=== PATIENT | male | born 1980 | race Caucasian/White ===

== ENCOUNTER 2017-08-02 22:11 | Emergency (ER) | payer OTHER ==
[2017-08-02 22:26] VITALS: BP 134/92
--- NOTE | 2017-08-02 23:23 | EDM.PDOC ---
ED HPI GENERAL MEDICAL PROBLEM - General Chief Complaint: Genitourinary Problem Stated Complaint: GROIN AREA PROBLEM Time Seen by Provider: 08/02/17 22:35 Source of Information: Reports: Patient History Limitations: Reports: No Limitations - History of Present Illness INITIAL COMMENTS - FREE TEXT/NARRATIVE: The patient presents with right testicular pain and swelling. This started this morning. He denies any trauma. He has no discharge, dysuria, or frequency. He is in a monogamous relationship with his for many years. He has no fever, chills, cough, chest pain, shortness of breath, abdominal pain , nausea or vomiting. He has no lesions on his penis. Onset: Gradual Duration: Hour(s): Location: Reports: Other (Right testicular pain) Quality: Reports: Sharp Severity: Moderate Improves with: Reports: None Worsens with: Reports: None Associated Symptoms: Reports: No Other Symptoms Right Pain Score (Numeric/FACES): 10 - Related Data Allergies Allergy/AdvReac Type Severity Reaction Status Date / Time No Known Allergies Allergy Verified 08/02/17 22:26 Home Meds: Home Meds . [No Known Home Meds] 08/02/17 [History] Past Medical History - Past Health History Medical/Surgical History: Denies Medical/Surgical History Other Musculoskeletal History: right wrist surgery Social & Family History - Tobacco Use Smoking Status *Q: Never Smoker ED ROS GENERAL - Review of Systems Review Of Systems: See Below Constitutional: Reports: No Symptoms HEENT: Reports: No Symptoms Respiratory: Reports: No Symptoms Cardiovascular: Reports: No Symptoms Endocrine: Reports: No Symptoms GI/Abdominal: Reports: No Symptoms : Reports: Other (Right testicular pain) Musculoskeletal: Reports: No Symptoms ED EXAM, RENAL/ - Physical Exam Exam: See Below Exam Limited By: No Limitations General Appearance: Alert, No Apparent Distress Ears: Normal External Exam Nose: Normal Inspection Head: Atraumatic, Normocephalic Neck: Normal Inspection Respiratory/Chest: No Respiratory Distress, Lungs Clear, Normal Breath Sounds Cardiovascular: Regular Rate, Rhythm, No Edema, No Murmur GI/Abdominal: Soft, Non-Tender, No Organomegaly, No Mass (Male) Exam: Other (Pain upon palpation to the right testicle with some edema. No drainage or rashes or lesions noted.) Course - Vital Signs Last Recorded V/S: Last Vital Signs Temp 98.5 F 05/21/18 22:23 Pulse 85 08/02/17 22:23 Resp 18 08/02/17 22:23 BP 134/92 H 08/02/17 22:23 Pulse Ox 100 08/02/17 22:23 - Orders/Labs/Meds Orders: Active Orders 24 hr Category Date Time Status Scrotum and Contents [US] Stat Exams 08/02/17 22:45 Taken UA W/MICROSCOPIC [URIN] Stat Lab 08/02/17 22:50 Ordered Labs: Laboratory Tests 08/02/17 Range/Units 22:50 Urine Color Yellow (Yellow) Urine Appearance Clear (Clear) Urine pH 5.5 (5.0-8.0) Ur Specific [place] > or = 1.030 (1.005-1.030) Urine Protein Negative (Negative) Urine Glucose (UA) Negative (Negative) Urine Ketones Negative (Negative) Urine Occult Blood Negative (Negative) Urine Nitrite Negative (Negative) Urine Bilirubin Negative (Negative) Urine Urobilinogen 0.2 (0.2-1.0) Ur Leukocyte Esterase Negative (Negative) Urine RBC 0-5 (0-5) /hpf Urine WBC Not seen (0-5) /hpf Ur Epithelial Cells Not seen (0-5) /hpf Urine Bacteria Occasional (FEW) /hpf Urine Mucus Moderate H (FEW) /hpf - Re-Assessments/Exams Free Text/Narrative Re-Assessment/Exam: 08/02/17 23:22 I ordered a UA and an US. 08/03/17 00:03 His UA shows no UTI. His US showed nothing acute. He may have slept wrong and crushed it. I will give him something for pain and have him take tomorrow off. 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 That could make this worse. Departure - Departure Time of Disposition: 00:05 Disposition: Home, Self-Care 01 Condition: Good Clinical Impression: Right testicular pain - Discharge Information Referrals: Tan Murdock MD [Primary Care Provider] - 1 Week Forms: ED Department Discharge, ED Return to Work/School Form Additional Instructions: Ice your scrotum for 15 minutes 3 times per day for 2 days. Take the hydrocodone for pain. Please return if you are worse. Follow up with Dr Virk in a week. - My Orders Last 24 Hours: My Active Orders 08/02/17 22:45 Scrotum and Contents [US] Stat 08/02/17 22:50 UA W/MICROSCOPIC [URIN] Stat - Assessment/Plan Last 24 Hours: My Active Orders 08/02/17 22:45 Scrotum and Contents [US] Stat 08/02/17 22:50 UA W/MICROSCOPIC [URIN] Stat
--- NOTE | 2017-08-03 08:32 | US ---
Testicular ultrasound: Multiple real-time images of the testicles were obtained. Comparison: No previous study. Testicles have a homogeneous ultrasound appearance. No intratesticular abnormality is appreciated. Both arterial and venous blood flow are seen within the testicles. Three small epididymal cysts noted on the left side measuring 6.3 mm, 5.6 mm and 7.1 mm. No significant hydroceles are seen. Right testicle: 4.5 x 2.8 x 3.4 cm Left testicle: 4.6 x 2.6 x 3.1 cm Impression: 1. Three small epididymal cysts on the left side all measuring less than 1 cm. 2. Testicular ultrasound is otherwise unremarkable. Diagnostic code #2 I agree with preliminary report from [facility], finalized at 08/03/17, 1:04 AM Central Time
== END 2017-08-03 00:16 | disposition home or self-care (01) ==
LOC: JD.ED 22:11
DX: N50.811 Right testicular pain (principal)
CPT/HCPCS: 76870; 76870-26; 81001; 93975; 99284-25

== ENCOUNTER 2017-08-16 15:08 | Emergency (ER) | payer OTHER ==
[2017-08-16 15:21] VITALS: BP 137/92
[2017-08-16] MEDS ORDERED: Ketorolac 15 MG/ML SDV IVPUSH ONE (15:33)
[2017-08-16] MEDS ORDERED: Ondansetron 4 MG/2 ML SDV IVPUSH ONE (15:33)
[2017-08-16] MEDS ORDERED: Sodium Chloride 0.9% 10 ML Syringe FLUSH PRN (15:33)
--- NOTE | 2017-08-16 15:36 | EDM.PDOC ---
ED HPI GENERAL MEDICAL PROBLEM - General Chief Complaint: Back Pain or Injury Stated Complaint: LOWER BACK PAIN Time Seen by Provider: 08/16/17 15:24 Source of Information: Reports: Patient History Limitations: Reports: No Limitations - History of Present Illness INITIAL COMMENTS - FREE TEXT/NARRATIVE: Patient is a 37-year-old male with history of kidney stones presents ED with sudden onset of right lower back pain that started approximately 345 this morning. Patient took some Aleve with improvement of symptoms. He was able to fall back asleep and awoke with no issues thereafter until 1245 this afternoon. Currently patient cannot get comfortable. Patient states pain is rated a 13 out of 10. The same pain he experienced last year with having a kidney stone to the left kidney. He cannot get comfortable. There is episodes of mild nausea. Pain does radiate into the right inguinal region. No pain to his testicles. No dysuria. No hematuria. No increased frequency or decreased amount. Otherwise he offers no additional complaints. Again there has been no activity or trauma that precipitated this pain. Right Lower Back Pain Score (Numeric/FACES): 10 - Related Data Allergies Allergy/AdvReac Type Severity Reaction Status Date / Time No Known Allergies Allergy Verified 08/16/17 15:21 Home Meds: Home Meds Acetaminophen/oxyCODONE [Percocet 325-5 MG] 1 tab PO Q6HR PRN #15 tab 08/16/17 [ Rx] Ondansetron [Zofran ODT] 4 mg PO Q6H PRN #15 tab.dis 08/16/17 [Rx] Tamsulosin HCl [Flomax] 0.4 mg PO QAM #7 cap.er.24h 08/16/17 [Rx] Past Medical History - Past Health History Medical/Surgical History: Denies Medical/Surgical History Other Musculoskeletal History: right wrist surgery ED ROS GENERAL - Review of Systems Review Of Systems: ROS reveals no pertinent complaints other than HPI. ED EXAM, RENAL/ - Physical Exam Exam: See Below Exam Limited By: No Limitations General Appearance: Alert, WD/WN, Moderate Distress Ears: Hearing Grossly Normal Nose: Normal Inspection Throat/Mouth: Normal Voice, No Airway Compromise Neck: Normal Inspection, Supple, Full Range of Motion Respiratory/Chest: No Respiratory Distress, Lungs Clear, Normal Breath Sounds, No Accessory Muscle Use Cardiovascular: Normal Peripheral Pulses, Regular Rate, Rhythm, No Murmur GI/Abdominal: Normal Bowel Sounds, Soft, Non-Tender, No Organomegaly, No Distention (Male) Exam: Deferred (No complaints) Back Exam: CVA Tenderness (R), Other (Right flank). No: Muscle Spasm, Paraspinal Tenderness, Vertebral Tenderness Extremities: Normal Inspection Neurological: Alert, Oriented, CN II-XII Intact, Normal Cognition, No Motor/ Sensory Deficits Psychiatric: Normal Affect, Normal Mood Skin Exam: Warm, Dry, Intact, Normal Color, No Rash Course - Vital Signs Last Recorded V/S: Last Vital Signs Temp 97.7 F 08/16/17 15:18 Pulse 60 08/16/17 15:18 Resp 16 08/16/17 15:18 BP 137/92 H 08/16/17 15:18 Pulse Ox 98 08/16/17 15:18 - Orders/Labs/Meds Orders: Active Orders 24 hr Category Date Time Status Communication Order [RC] STAT Care 08/16/17 16:57 Active Peripheral IV Care [RC] . DIRECTED Care 08/16/17 15:33 Active Peripheral IV Insertion Adult [OM.PC] Routine Oth 08/16/17 15:33 Ordered Labs: Laboratory Tests 08/16/17 08/16/17 08/16/17 Range/Units 15:35 15:35 15:40 WBC 7.23 (4.23-9.07) K/mm3 RBC 5.27 (4.63-6.08) M/mm3 Hgb 15.1 (13.7-17.5) gm/L Hct 44.9 (40.1-51.0) % MCV 85.2 (79.0-92.2) fl MCH 28.7 (25.7-32.2) pg MCHC 33.6 (32.2-35.5) g/dl RDW Std Deviation 43.5 (35.1-43.9) fL Plt Count 210 (163-337) K/mm3 MPV 10.5 (9.4-12.3) fl Neutrophils % (Manual) 67 H (40-60) % Band Neutrophils % 0 (0-10) % Lymphocytes % (Manual) 28 (20-40) % Atypical Lymphs % 0 % Monocytes % (Manual) 3 (2-10) % Eosinophils % (Manual) 2 (0.8-7.0) % Basophils % (Manual) 0 L (0.2-1.2) Toxic Granulation Few Platelet Estimate Adequate Plt Morphology Comment Normal RBC Morph Comment Normal Sodium 139 (136-145) mEq/L Potassium 4.1 (3.5-5.1) mEq/L Chloride 103 (98-107) mEq/L Carbon Dioxide 26 (21-32) mEq/L Anion Gap 14.1 (5-15) BUN 28 H (7-18) mg/dL Creatinine 1.4 H (0.7-1.3) mg/dL Est Cr Clr Drug Dosing 83.99 mL/min Estimated GFR (MDRD) 57 (>60) mL/min BUN/Creatinine Ratio 20.0 H (14-18) Glucose 108 H (74-106) mg/dL Calcium 9.6 (8.5-10.1) mg/dL Total Bilirubin 0.6 (0.2-1.0) mg/dL AST 42 H (15-37) U/L ALT 87 H (16-63) U/L Alkaline Phosphatase 84 (46-116) U/L C-Reactive Protein 1.7 H* (<1.0) mg/dL Total Protein 8.0 (6.4-8.2) g/dl Albumin 4.3 (3.4-5.0) g/dl Globulin 3.7 gm/dL Albumin/Globulin Ratio 1.2 (1-2) Urine Color Yellow (Yellow) Urine Appearance Clear (Clear) Urine pH 5.5 (5.0-8.0) Ur Specific [place] > or = 1.030 (1.005-1.030) Urine Protein 1+ H (Negative) Urine Glucose (UA) Negative (Negative) Urine Ketones Negative (Negative) Urine Occult Blood 2+ H (Negative) Urine Nitrite Negative (Negative) Urine Bilirubin Negative (Negative) Urine Urobilinogen 0.2 (0.2-1.0) Ur Leukocyte Esterase Negative (Negative) Urine RBC 20-30 H (0-5) /hpf Urine WBC 0-5 (0-5) /hpf Ur Epithelial Cells 0-5 (0-5) /hpf Urine Bacteria Not seen (FEW) /hpf Urine Mucus Not seen (FEW) /hpf Meds: Medications Discontinued Medications Generic Name Dose Route Start Last Admin Trade Name Freq PRN Reason Stop Dose Admin Sodium Chloride 1,000 mls @ 250 mls/hr 08/16/17 15:45 08/16/17 15:43 Normal Saline IV 250 mls/hr ASDIRECTED FABRIZIO Administration Ketorolac Tromethamine 15 mg 08/16/17 15:33 08/16/17 15:43 Toradol IVPUSH 08/16/17 15:34 15 mg ONETIME ONE Administration Morphine Sulfate 2 mg 08/16/17 16:46 08/16/17 16:50 Morphine IVPUSH 08/16/17 16:47 2 mg ONETIME ONE Administration Ondansetron HCl 4 mg 08/16/17 15:33 08/16/17 15:44 Zofran IVPUSH 08/16/17 15:34 4 mg ONETIME ONE Administration Oxycodone/Acetaminophen 1 tab 08/16/17 17:17 08/16/17 17:28 Percocet 325-5 Mg PO 08/16/17 17:18 1 tab ONETIME ONE Administration Sodium Chloride 10 ml 08/16/17 15:33 08/16/17 15:46 Saline Flush FLUSH 10 ml ASDIRECTED PRN Administration Keep Vein Open Tamsulosin HCl 0.4 mg 08/16/17 16:46 08/16/17 16:51 Flomax PO 08/16/17 16:47 0.4 mg ONETIME ONE Administration - Re-Assessments/Exams Free Text/Narrative Re-Assessment/Exam: IV established with normal saline 250 mL per hour. Ordered Toradol 50 mg IVP, Zofran 4 mg IVP. Initial labs and studies include CBC, chem 14, CRP, UA, and CT of the abdomen without contrast renal stone protocol. Labs reviewed: CBC essentially normal. Creatinine 1.4. AST and ALT mildly elevated. CRP 1.7. UA positive for protein and urine rbc's 20-30. CT abdomen and pelvis impression: 1-2 mm partially obstructing stone within the distal right ureter causing mild proximal hydronephrosis. Fatty infiltration within the liver and other incidental findings. Per nursing staff patients pain not controlled with toradol. Ordered Morphine 2 mg IVP. Once pain is under control will discharge home. 08/16/17 17:18 Per nursing staff. Patients pain is decreasing. I have ordered percocet 5-325 x1 PO. Discharge instructions as documented. Departure - Departure Time of Disposition: 16:55 Disposition: Home, Self-Care 01 Condition: Good Clinical Impression: Kidney stone on right side - Discharge Information Prescriptions: Acetaminophen/oxyCODONE [Percocet 325-5 MG] 1 tab PO Q6HR PRN #15 tab PRN Reason: Pain (Severe 7-10) Ondansetron [Zofran ODT] 4 mg PO Q6H PRN #15 tab.dis PRN Reason: Nausea/Vomiting Tamsulosin HCl [Flomax] 0.4 mg PO QAM #7 cap.er.24h Instructions: Kidney Stones, [id number] Referrals: Tan Murdock MD [Primary Care Provider] - Forms: ED Department Discharge Additional Instructions: Take the Percocet, Flomax, and Zofran as prescribed. Push the fluids. Strain all urine voids. If pain persists please follow up with a urologist of your choosing. Call and make an appointment. Suspect stone will pass on its on accord today. If you develop fever, inability to keep liquids/medicines down, worsening pain, please return to the ED. - My Orders Last 24 Hours: My Active Orders 08/16/17 15:33 Peripheral IV Care [RC] . DIRECTED Peripheral IV Insertion Adult [OM.PC] Routine 08/16/17 16:57 Communication Order [RC] STAT - Assessment/Plan Last 24 Hours: My Active Orders 08/16/17 15:33 Peripheral IV Care [RC] . DIRECTED Peripheral IV Insertion Adult [OM.PC] Routine 08/16/17 16:57 Communication Order [RC] STAT
[2017-08-16] MEDS ORDERED: Sodium Chloride 0.9% 1,000 ML IV SCH (15:45)
--- NOTE | 2017-08-16 16:43 | CT ---
CT abdomen and pelvis Technique: Multiple axial sections were obtained from above the dome of the diaphragm inferiorly through the pubic symphysis. Intravenous and oral contrast not utilized. Study has been performed as a ureteral stone protocol. Comparison: No prior CT exam. Findings: Small partially obstructing stone is seen within distal right ureter near the UVJ measuring about 1-2 mm. Right ureter is mildly prominent. No other abnormal calcifications are seen along the course of the ureters. Kidneys show no abnormal calcifications. Visualized lung bases show nothing acute. Liver shows fatty infiltration. Spleen appears within normal limits. Small hiatal hernia is seen. Adrenal glands show no nodule. Pancreas appears normal. Aorta shows no aneurysmal dilatation. No retroperitoneal adenopathy or mesenteric abnormalities are seen. No pelvic mass or adenopathy is seen. Bone window settings were reviewed which shows no discrete osseous abnormality. Fat-containing umbilical hernia is noted. Impression: 1. 1-2 mm partially obstructing stone within the distal right ureter causing mild proximal hydronephrosis. 2. Fatty infiltration within the liver and other incidental findings. Diagnostic code #3
[2017-08-16] MEDS ORDERED: Tamsulosin 0.4 MG Cap.ER PO ONE (16:46)
[2017-08-16] MEDS ORDERED: Morphine 2 MG/ML Syringe IVPUSH ONE (16:46)
[2017-08-16] MEDS ORDERED: Acetaminophen/oxyCODONE 325-5 MG Tab PO ONE (17:17)
== END 2017-08-16 17:13 | disposition home or self-care (01) ==
LOC: JD.ED 15:08
DX: N13.2 Hydronephrosis with renal and ureteral calculous obstruction (principal)
CPT/HCPCS: 36415; 74176; 80053; 81001; 85007; 85027; 86140; 96361; 96374; 96375; 99284; A9270; J1885; J2270; J2405; J7040; J7050

== ENCOUNTER 2019-01-02 12:25 | Emergency (ER) | payer OTHER ==
[2019-01-02 12:35] VITALS: BP 143/75; PULSE 83
[2019-01-02] MEDS ORDERED: Sodium Chloride 0.9% 1,000 ML IV STA (12:46)
[2019-01-02] MEDS ORDERED: Ondansetron 4 MG/2 ML SDV IVPUSH ONE (12:46)
[2019-01-02] MEDS ORDERED: HYDROmorphone 0.5 MG/0.5 ML Syringe IVPUSH ONE (12:47)
--- NOTE | 2019-01-02 12:53 | EDM.PDOC ---
ED HPI GENERAL MEDICAL PROBLEM - General Chief Complaint: Abdominal Pain Stated Complaint: ABDOMINAL PAIN Time Seen by Provider: 01/02/19 12:35 Source of Information: Reports: Patient History Limitations: Reports: No Limitations - History of Present Illness INITIAL COMMENTS - FREE TEXT/NARRATIVE: The patient presents with abdominal pain. He said yesterday he had some sore ness but today it is much worse. The pain is in the mid abdomen. He has a umbilical hernia for the past 5 years with no problems. He does not think it is stuck because he can push the hernia back in but it is tender. He has no fever, chills, cough, congestion or runny nose. He still has his gallbladder and appendix. He has no nausea or vomiting. He has no dysuria or hematuria. He did have a bowel movement today and it did hurt to strain. Onset: Gradual Duration: Day(s): (Yesterday) Location: Reports: Abdomen Quality: Reports: Sharp Severity: Moderate Improves with: Reports: Immobilization Worsens with: Reports: Movement Context: Denies: Trauma Associated Symptoms: Reports: No Other Symptoms Abdominal Pain Score (Numeric/FACES): 9 - Related Data Allergies Allergy/AdvReac Type Severity Reaction Status Date / Time No Known Allergies Allergy Verified 01/02/19 12:35 Home Meds: Home Meds Hydrocodone/Acetaminophen [Hydrocodon-Acetaminophen 5-325] 1 - 2 each PO Q6HR PRN #10 tablet 01/02/19 [Rx] Past Medical History - Past Health History Medical/Surgical History: Denies Medical/Surgical History Other Musculoskeletal History: right wrist surgery Social & Family History - Family History Family Medical History: Noncontributory - Caffeine Use Other Caffeine Use: non caffeinated soda ED ROS GENERAL - Review of Systems Review Of Systems: See Below Constitutional: Reports: No Symptoms HEENT: Reports: No Symptoms Respiratory: Reports: No Symptoms Cardiovascular: Reports: No Symptoms Endocrine: Reports: No Symptoms GI/Abdominal: Reports: Abdominal Pain. Denies: Diarrhea, Nausea, Vomiting : Reports: No Symptoms Musculoskeletal: Reports: No Symptoms ED EXAM, GI/ABD - Physical Exam Exam: See Below Exam Limited By: No Limitations General Appearance: Alert, No Apparent Distress Ears: Normal External Exam Nose: Normal Inspection Head: Atraumatic, Normocephalic Neck: Normal Inspection Respiratory/Chest: No Respiratory Distress, Lungs Clear, Normal Breath Sounds Cardiovascular: Regular Rate, Rhythm, No Edema, No Murmur GI/Abdominal Exam: Soft, Tender (Moderate tenderness to the mid abdomen and RLQ. Umbilical hernia that is easilly reduced but he had tenderness with it.) Course - Vital Signs Last Recorded V/S: Last Vital Signs Temp 98.6 F 01/02/19 12:32 Pulse 83 01/02/19 12:32 Resp 16 01/02/19 12:32 BP 143/75 H 01/02/19 12:32 Pulse Ox 16 L 01/02/19 12:32 - Orders/Labs/Meds Orders: Active Orders 24 hr Category Date Time Status Peripheral IV Care [RC] . DIRECTED Care 01/02/19 12:46 Active Sodium Chloride 0.9% [Saline Flush] Med 01/02/19 12:46 Active 10 ml FLUSH ASDIRECTED PRN ED Antiemetic Medication Reflex [OM.PC] Stat Oth 01/02/19 12:46 Ordered Peripheral IV Insertion Adult [OM.PC] Stat Oth 01/02/19 12:46 Ordered Medication Orders Sodium Chloride (Saline Flush) 10 ml FLUSH ASDIRECTED PRN PRN Reason: Keep Vein Open Last Admin: 01/02/19 13:53 Dose: 10 ml Admin: 01/02/19 13:16 Dose: 10 ml Labs: Laboratory Tests 01/02/19 01/02/19 Range/Units 13:10 13:10 WBC 6.54 (4.23-9.07) K/mm3 RBC 5.56 (4.63-6.08) M/mm3 Hgb 16.3 (13.7-17.5) gm/dl Hct 48.2 (40.1-51.0) % MCV 86.7 (79.0-92.2) fl MCH 29.3 (25.7-32.2) pg MCHC 33.8 (32.2-35.5) g/dl RDW Std Deviation 41.9 (35.1-43.9) fL Plt Count 241 (163-337) K/mm3 MPV 10.6 (9.4-12.3) fl Neut % (Auto) 66.6 (34.0-67.9) % Lymph % (Auto) 25.7 (21.8-53.1) % [place] % (Auto) 5.8 (5.3-12.2) % Eos % (Auto) 1.4 (0.8-7.0) Baso % (Auto) 0.2 (0.1-1.2) % Neut # (Auto) 4.36 (1.78-5.38) K/mm3 Lymph # (Auto) 1.68 (1.32-3.57) K/mm3 [place] # (Auto) 0.38 (0.30-0.82) K/mm3 Eos # (Auto) 0.09 (0.04-0.54) K/mm3 Baso # (Auto) 0.01 (0.01-0.08) K/mm3 Sodium 136 (136-145) mEq/L Potassium 4.1 (3.5-5.1) mEq/L Chloride 101 (98-107) mEq/L Carbon Dioxide 27 (21-32) mEq/L Anion Gap 12.1 (5-15) BUN 14 (7-18) mg/dL Creatinine 1.2 (0.7-1.3) mg/dL Est Cr Clr Drug Dosing 99.76 mL/min Estimated GFR (MDRD) > 60 (>60) mL/min BUN/Creatinine Ratio 11.7 L (14-18) Glucose 126 H (74-106) mg/dL Calcium 9.8 (8.5-10.1) mg/dL Total Bilirubin 0.5 (0.2-1.0) mg/dL AST 60 H (15-37) U/L ALT 141 H (16-63) U/L Alkaline Phosphatase 93 (46-116) U/L Total Protein 7.8 (6.4-8.2) g/dl Albumin 4.2 (3.4-5.0) g/dl Globulin 3.6 gm/dL Albumin/Globulin Ratio 1.2 (1-2) Lipase 86 (73-393) U/L Meds: Medications Generic Name Dose Route Start Last Admin Trade Name Freq PRN Reason Stop Dose Admin Sodium Chloride 10 ml 01/02/19 12:46 01/02/19 13:53 Saline Flush FLUSH 10 ml ASDIRECTED PRN Administration Keep Vein Open Discontinued Medications Generic Name Dose Route Start Last Admin Trade Name Freq PRN Reason Stop Dose Admin Diatrizoate Meglum/Diatrizoate Sod 60 ml 01/02/19 13:52 01/02/19 13:53 Gastrografin 37% PO 01/02/19 13:53 60 ml ONETIME ONE Administration Hydromorphone HCl 0.5 mg 01/02/19 12:47 01/02/19 13:16 Dilaudid IVPUSH 01/02/19 12:48 0.5 mg ONETIME ONE Administration Sodium Chloride 1,000 mls @ 1,000 mls/hr 01/02/19 12:46 01/02/19 13:17 Normal Saline IV 01/02/19 13:45 1,000 mls/hr .BOLUS STA Administration Iopamidol 100 ml 01/02/19 13:52 01/02/19 13:53 Isovue-300 (61%) IVPUSH 01/02/19 13:53 100 ml ONETIME ONE Administration Iopamidol 25 ml 01/02/19 13:54 01/02/19 13:55 Isovue-300 (61%) IVPUSH 01/02/19 13:55 25 ml ONETIME ONE Administration Ondansetron HCl 4 mg 01/02/19 12:46 01/02/19 13:16 Zofran IVPUSH 01/02/19 12:47 4 mg ONETIME ONE Administration - Re-Assessments/Exams Free Text/Narrative Re-Assessment/Exam: 01/02/19 12:52 I ordered an IV NS 1L bolus, zofran 4mg IV, dilaudid 0.5mg IV, labs, UA and a CT of his abdomen and pelvis with IV and oral contrast. 01/02/19 14:51 His CBC looks good. His AST is elevated at 60. His ALT is elevated at 141. His lipase is normal. His CT shows umbilical hernia. This shows slight haziness difficult to exclude slight inflammatory-type change within the hernia fat. Fatty infiltration within the liver. Nothing acute is otherwise seen on CT study of the abdomen and pelvis. 01/02/19 14:[address] Justin and the patient can follow up with him this week. Departure - Departure Time of Disposition: 15:00 Disposition: Home, Self-Care 01 Condition: Good Clinical Impression: Umbilical hernia Qualifiers: Obstruction and gangrene presence: without obstruction or gangrene Qualified Code(s): K42.9 - Umbilical hernia without obstruction or gangrene - Discharge Information *PRESCRIPTION DRUG MONITORING PROGRAM REVIEWED*: No *COPY OF PRESCRIPTION DRUG MONITORING REPORT IN PATIENT CAITY: No Prescriptions: Hydrocodone/Acetaminophen [Hydrocodon-Acetaminophen 5-325] 1 - 2 each PO Q6HR PRN #10 tablet PRN Reason: Pain Referrals: Tan Murdock MD [Primary Care Provider] - Lupe Justin MD [Physician] - 3 Days Forms: ED Department Discharge Additional Instructions: Take tylenol or motrin for any pain. If that does not help, try the hydrocodone. Do not lift anything heavier then about [address] Justin's office today and see when they can get you in this week. If you have pain and it is stuck, lay down and try to push the hernia back in. If that does not help, please return. - My Orders Last 24 Hours: My Active Orders 01/02/19 12:46 Peripheral IV Care [RC] . DIRECTED Sodium Chloride 0.9% [Saline Flush] 10 ml FLUSH ASDIRECTED PRN ED Antiemetic Medication Reflex [OM.PC] Stat Peripheral IV Insertion Adult [OM.PC] Stat - Assessment/Plan Last 24 Hours: My Active Orders 01/02/19 12:46 Peripheral IV Care [RC] . DIRECTED Sodium Chloride 0.9% [Saline Flush] 10 ml FLUSH ASDIRECTED PRN ED Antiemetic Medication Reflex [OM.PC] Stat Peripheral IV Insertion Adult [OM.PC] Stat
[2019-01-02] MEDS: Sodium Chloride 0.9% 10 ML Syringe FLUSH PRN ×2 (13:16→13:53)
[2019-01-02] MEDS ORDERED: Iopamidol 612 MG/ML 100 ML Bottle IVPUSH ONE ×2 (13:52→13:54)
[2019-01-02] MEDS ORDERED: Diatrizoate Meglumine/Diatrizoate Sodium 37% 120 ML Bottle PO ONE (13:52)
--- NOTE | 2019-01-02 14:36 | CT ---
CT abdomen and pelvis Technique: Multiple axial sections were obtained from the top of the liver inferiorly through the pubic symphysis. Intravenous and oral contrast was utilized. Comparison: Previous CT abdomen and pelvis study of 08/16/17. Findings: Visualized lung bases show nothing acute. Liver shows diffuse fatty infiltration. No focal abnormality is seen within the liver. Spleen appears within normal limits. Adrenal glands show no nodule. Pancreas is within normal limits. Kidneys show symmetric contrast enhancement without hydronephrosis or mass. Aorta shows no aneurysm. No retroperitoneal adenopathy is seen. Fat-containing umbilical hernia is noted. Appendix is seen and is normal in size. No pelvic mass or adenopathy is seen. No free fluid or inflammatory change is noted. Delayed images show contrast within the distal ureters as well as within the bladder. Bone window settings were reviewed which appear within normal limits for the patient's age. Impression: 1. Umbilical hernia. This shows slight haziness difficult to exclude slight inflammatory-type change within the hernia fat. 2. Fatty infiltration within the liver. 3. Nothing acute is otherwise seen on CT study of the abdomen and pelvis. Diagnostic code #3
== END 2019-01-02 15:17 | disposition home or self-care (01) ==
LOC: JD.ED 12:25
DX: K42.9 Umbilical hernia without obstruction or gangrene (principal)
CPT/HCPCS: 36415; 74177; 80053; 83690; 85025; 96361; 96374; 96375; 99284; J1170; J2405; J7040; Q9963; Q9967

== ENCOUNTER 2019-01-09 09:52 | Day surgery (SDC) | payer OTHER ==
[~2019-01-09 09:52] MED LIST: Lactated Ringers 1,000 ML IV SCH; Lidocaine 1%/Sod Bicarbonate in NS 8.4% 1 ML Syringe IDERM PRN; Sodium Chloride 0.9% 10 ML Syringe FLUSH PRN
[2019-01-09] MEDS ORDERED: ceFAZolin 2 GM in Premix Bag 1 BAG IV ONE (10:57)
[2019-01-09] MEDS ORDERED: Rocuronium 50 MG/5 ML Vial ONE (11:16)
[2019-01-09] MEDS ORDERED: Ondansetron 4 MG/2 ML SDV ONE (11:16)
[2019-01-09] MEDS ORDERED: Midazolam 1 MG/ML 2 ML SDV ONE (11:17)
[2019-01-09] MEDS ORDERED: fentaNYL 250 MCG/5 ML SDV ONE (11:17)
[2019-01-09] MEDS ORDERED: ceFAZolin 1 GM Vial ONE (11:17)
[2019-01-09] MEDS ORDERED: Propofol 200 MG/20 ML SDV ONE ×2 (11:17→11:43)
--- NOTE | 2019-01-09 11:24 | PCM.PREANE ---
Preanesthetic Assessment - Procedure Proposed Procedure: umbilical hernia repair open - Anesthesia/Transfusion/Family Hx Anesthesia History: Prior Anesthesia Without Reaction Family History of Anesthesia Reaction: No Transfusion History: No Prior Transfusion(s) - Review of Systems General: No Symptoms, Fever (last wednesday to ER- had a fever- went to ER because of pain) Pulmonary: Cough (started 1.5 days ago) Cardiovascular: No Symptoms Gastrointestinal: Abdominal Pain (umbilical hernia) Neurological: No Symptoms Other: Reports: Sinus Problem (trouble breathing out of nose), Anxiety - Physical Assessment NPO Status Date: 01/08/19 NPO Status Time: 23:59 Vital Signs: 135/88 20 99.2 and 97.7 93% 85 Height: 6 ft 3 in Weight: 164.654 kg ASA Class: 2 Mental Status: Alert & Oriented x3 Airway Class: Mallampati = 1 Dentition: Reports: Normal Dentition Thyro-Mental Finger Breadths: 3 Mouth Opening Finger Breadths: 3 ROM/Head Extension: Full Lungs: Clear to Auscultation, Normal Respiratory Effort Cardiovascular: Regular Rate, Regular Rhythm - Allergies Allergies/Adverse Reactions: Allergies Allergy/AdvReac Type Severity Reaction Status Date / Time No Known Allergies Allergy Verified 01/06/19 15:16 - Blood Blood Available: No - Acknowledgements Anesthesia Type Planned: General Anesthesia Pt an Appropriate Candidate for the Planned Anesthesia: Yes Alternatives and Risks of Anesthesia Discussed w Pt/Guardian: Yes Pt/Guardian Understands and Agrees with Anesthesia Plan: Yes PreAnesthesia Questionnaire - Past Health History Medical/Surgical History: Denies Medical/Surgical History HEENT History: Reports: Impaired Vision, Other (See Below) Other HEENT History: WERAS GLASSES, hard to breathe out of nose Cardiovascular History: Reports: None Respiratory History: Reports: Sleep Apnea (cpap) Gastrointestinal History: Reports: Other (See Below) Other Gastrointestinal History: elevated LFTs Genitourinary History: Reports: None MACHINE [employer] History: Reports: None Other Musculoskeletal History: right wrist surgery, left hand surgery Neurological History: Reports: None Psychiatric History: Reports: Anxiety Endocrine/Metabolic History: Reports: Obesity/BMI 30+, Other (See Below) Other Endocrine/Metabolic History: impaired fasting glucose Hematologic History: Reports: None Immunologic History: Reports: None Oncologic (Cancer) History: Reports: None Dermatologic History: Reports: None - Past Surgical History Head Surgeries/Procedures: Reports: None Cardiovascular Surgical History: Reports: None Respiratory Surgical History: Reports: None GI Surgical History: Reports: None Male Surgical History: Reports: Vasectomy Endocrine Surgical History: Reports: None Neurological Surgical History: Reports: None Musculoskeletal Surgical History: Reports: None, Other (See Below) (ulna nerve and artery right hand) Oncologic Surgical History: Reports: None Dermatological Surgical History: Reports: None - SUBSTANCE USE Smoking Status *Q: Former Smoker (high school) Tobacco Use Within Last Twelve Months: No Second Hand Smoke Exposure: No Days Per Week of Alcohol Use: 4 ([place]) Number of Drinks Per Day: 2 Total Drinks Per Week: 8 Recreational Drug Use History: No - HOME MEDS Home Medications: Home Meds Acetaminophen [Tylenol] 650 mg PO Q4H PRN 01/06/19 [History] Docusate Sodium [Colace] 100 mg PO BID #30 capsule 01/09/19 [Rx] Naproxen Sodium [Aleve] 1 tab PO ASDIRECTED PRN 01/09/19 [History] oxyCODONE HCl/Acetaminophen [Percocet 5-325 mg Tablet] 1 each PO Q6HR PRN #10 tablet 01/09/19 [Rx] - CURRENT (IN HOUSE) MEDS Current Meds: Current Medications Lactated Ringer's (Ringers, Lactated) 1,000 mls @ 125 mls/hr IV ASDIRECTED FABRIZIO Stop: 01/09/19 23:00 Last Admin: 01/09/19 10:45 Dose: 125 mls/hr Cefazolin Sodium/Dextrose 2 gm (/ Premix) 50 mls @ 100 mls/hr IV ONETIME ONE Stop: 01/09/19 11:26 Influenza Virus Vaccine (Fluzone Quad [id number] Syringe) 60 mcg IM .ONCE ONE Stop: 01/09/19 12:01 Lidocaine/Sodium Bicarbonate (Buffered Lidocaine 1% In Ns 8.4%) 0.25 ml IDERM ONETIME PRN PRN Reason: Prior to IV Start Stop: 01/09/19 18:00 Last Admin: 01/09/19 10:44 Dose: 0.25 ml Sodium Chloride (Saline Flush) 10 ml FLUSH ASDIRECTED PRN PRN Reason: Keep Vein Open Stop: 01/09/19 18:00 Discontinued Medications Influenza Virus Vaccine (Pharmacy To Dose - Influenza Vaccine) 1 each IM ONETIME FABRIZIO
[2019-01-09] MEDS ORDERED: Albuterol 0.083% 2.5 MG/3 ML Neb Soln NEB SCH (11:33)
[2019-01-09] MEDS ORDERED: FLU Vacc QS2019-20(6MOS+)/PF 60 MCG/0.5 ML SYRINGE IM ONE (12:00)
[2019-01-09] MEDS ORDERED: Lidocaine 1% with EPINEPHrine 1:100,000 20 ML MDV ONE ×2 (12:28→12:39)
[2019-01-09] MEDS ORDERED: Bupivacaine 0.5%/EPINEPHrine 1:200,000 50 ML MDV ONE (12:28)
[2019-01-09] MEDS ORDERED: Succinylcholine/Normal Saline 100 MG/5 ML Syringe ONE ×2 (13:19→13:20)
[2019-01-09] MEDS ORDERED: Lactated Ringers 1,000 ML ONE ×2 (13:19→14:57)
[2019-01-09] MEDS ORDERED: Ketorolac 30 MG/ML SDV ONE (13:31)
[2019-01-09] MEDS ORDERED: Phenylephrine/Normal Saline 100 MCG/ML 10 ML Syringe ONE (13:41)
[2019-01-09] MEDS ORDERED: Ketamine 500 mg/10 ML MDV ONE (13:42)
[2019-01-09] MEDS ORDERED: fentaNYL 100 MCG/2 ML SDV ONE (13:58)
[2019-01-09] MEDS ORDERED: Neostigmine Methylsulfate 1 MG/ML 5 ML Syringe ONE (14:05)
--- NOTE | 2019-01-09 15:06 | PCM.POSTAN ---
POST ANESTHESIA ASSESSMENT - MENTAL STATUS Mental Status: Somnolent - VITAL SIGNS Vital Signs: Last Vital Signs Temp 36.5 C 01/09/19 10:25 Pulse 85 01/09/19 10:25 Resp 20 01/09/19 10:25 BP 135/88 01/09/19 10:25 Pulse Ox 96 01/09/19 11:40 - RESPIRATORY Respiratory Status: Respiratory Rate WNL, Airway Patent, O2 Saturation Stable, Supplemental Oxygen - CARDIOVASCULAR CV Status: Pulse Rate WNL, Blood Pressure Stable - GASTROINTESTINAL GI Status: No Symptoms - PAIN Pain Score: 0 - POST OP HYDRATION Hydration Status: Adequate & Stable
--- NOTE | 2019-01-09 15:37 | PCM48HPAN ---
Post Anesthesia Note - EVALUATION WITHIN 48HRS OF ANESTHETIC Vital Signs in Normal Range: Yes Patient Participated in Evaluation: Yes Respiratory Function Stable: Yes Airway Patent: Yes Cardiovascular Function Stable: Yes Hydration Status Stable: Yes Pain Control Satisfactory: Yes Nausea and Vomiting Control Satisfactory: Yes Mental Status Recovered: Yes Vital Signs: Last Vital Signs Temp 36.6 C 01/09/19 15:30 Pulse 68 01/09/19 15:30 Resp 11 L 01/09/19 15:30 BP 122/68 01/09/19 15:30 Pulse Ox 91 L 01/09/19 15:30
--- NOTE | 2019-01-09 15:51 | OR ---
DATE OF OPERATION: 01/09/2019 SURGEON: Lupe Justin MD PREOPERATIVE DIAGNOSIS: Symptomatic umbilical hernia. POSTOPERATIVE DIAGNOSIS: Symptomatic umbilical hernia. OPERATION PERFORMED: Open umbilical hernia with mesh. ESTIMATED BLOOD LOSS: 5 mL. ANESTHESIA: General endotracheal. FLUIDS: 700. URINE OUTPUT: Not recorded. INDICATION AND CONSENT: The patient is a 38-year-old male with longstanding umbilical hernia that became symptomatic a few months ago. The patient saw me in clinic and we discussed repair. He desired repair because of bothersome symptoms including periumbilical pain. I discussed with the patient risks, benefits, and alternatives. Risks discussed include injury to the bowel, injury to the muscles, and bleeding infection including mesh infection, recurrence, wound complications. The patient understood and agreed to proceed with the procedure. Informed consent was obtained. DESCRIPTION OF PROCEDURE: The patient was taken to the operating room, placed in supine position following induction of general endotracheal anesthesia. Ancef was given as preop antibiotic. SCDs were placed. Abdominal hair was clipped. Then, abdomen was prepped and draped in the usual sterile fashion. Then, a formal time-out was performed prior to the start of the procedure. Then, we began the procedure by injecting lidocaine in the periumbilical area. Then, a 4-cm incision was made in the infraumbilical aspect. Dissection was carried down into subcutaneous tissue until the fascia was encountered and the hernia sac was encountered. Hernia sac was released from the umbilical stalk and the umbilical stalk was freed from the hernia sac. Then, the hernia sac was carefully released from surrounding fascial edges and transected. The hernia sac contained omentum. An attempt was made to put the omentum back into the abdomen, but it would not go, so this portion of the omentum was resected and sent to pathology as hernia contents. Then, the rest of the omentum was placed back in the abdomen. The abdominal wall was cleared of any adhesions. The fascial edges were measured and found to be 3 cm in the greatest time dimension. Therefore, we opted to place a mesh and a 6.4-cm circular mesh with straps was brought into the field and was placed into the hernia defect making sure that it is lying flat under the abdominal wall. The mesh was secured to the abdominal wall with 4 stitches using 2-0 Prolene in craniocaudal position and 0 Prolene in the left and right positions. Then, the straps were resected and the fascia was closed above the mesh with 0 Prolene stitches in interrupted fashion. Then at this point, the umbilical stalk was reattached to the fascia with a 3-0 Vicryl and then the incision was closed in 2 layers. Deeper layer was closed with a 3-0 Vicryl in an interrupted fashion and the skin was reapproximated with 4-0 Vicryl in a running fashion. Then, Dermabond was applied. This marked the end of the case. At the end of the case, all instrument, sharps, and sponges were counted and found to be correct x2. The patient tolerated the procedure well and extubated and taken to the PACU in stable condition. The patient will have weight restriction of no more than 20 pounds for 4 weeks. The patient will follow up with me in clinic in 2 weeks for postop check. HAYDEN /[id number] REI
[2019-01-09] MEDS ORDERED: Acetaminophen/oxyCODONE 325-5 MG Tab PO ONE (18:47)
[2019-01-09 21:31] VITALS: BP 120/70; PULSE 82
== END 2019-01-09 17:58 | disposition home or self-care (01) ==
LOC: JD.SDS 09:52
PROVIDERS: ATTEND Surgery
DX: K42.9 Umbilical hernia without obstruction or gangrene (principal); G47.33 Obstructive sleep apnea (adult) (pediatric); F32.9 Major depressive disorder, single episode, unspecified; F41.9 Anxiety disorder, unspecified; Z91.048 Other nonmedicinal substance allergy status; Z99.89 Dependence on other enabling machines and devices; Z87.891 Personal history of nicotine dependence
CPT/HCPCS: 90686; 94640; A9270-GY; C1781; G0008; J0330; J0690; J1885; J2250; J2370; J2405; J2704; J2710; J3010; J3490; J7120